=== PATIENT | female | born 1975 | race Two or more races ===

== ENCOUNTER 2018-06-10 21:27 | Emergency (ER) ==
[~2018-06-10] VITALS: Ht 154.9 cm; Wt 59.0 kg
[2018-06-10 21:29] VITALS: BP 140/96
--- NOTE | 2018-06-10 23:06 | NUR ---
RACHID NOTIFIED INCIDENT #[id number]
--- NOTE | 2018-06-10 23:36 | NUR ---
[facility] AT BEDSIDE FOR POLICE REPORT.
--- NOTE | 2018-06-10 23:48 | NUR ---
PER RACHID, "UNABLE TO FILE REPORT SINCE PT WAS ALREADY IN CUSTODY FOR THE SAME CASE. RACHID EXPLAINED UNLESS THIS IS A DIFFERENT CASE FROM A DIFFERENT DAY, THE PT WILL NEED TO FOLLOW UP WITH [facility]". PT VERBALIZED UNDERSTANDING. AWARE.
--- NOTE | 2018-06-10 23:59 | NUR ---
Patient discharged to home in stable condition. Written and verbal after care instructions given. Patient verbalizes understanding of instruction. Pt ambulatory with a steady gait
== END 2018-06-11 00:02 | disposition home or self-care (01) ==
LOC: ER 21:30
DX: H10.89 Other conjunctivitis (principal); H01.00B Unspecified blepharitis left eye, upper and lower eyelids; H01.00A Unspecified blepharitis right eye, upper and lower eyelids; B99.9 Unspecified infectious disease; T74.21XA Adult sexual abuse, confirmed, initial encounter; Y07.02 Wife, perpetrator of maltreatment and neglect; Z98.82 Breast implant status
CPT/HCPCS: A4606; Z7610